=== PATIENT | female | born 1950 | race Caucasian/White ===

== ENCOUNTER → 2017-02-08 | Outpatient (CLI) | payer MEDICARE, BC ==
[2017-02-08 12:01] LABS: ALT 40 U/L (9-52); AST 31 U/L (14-36); Anion Gap 12 mmol/L; Blood Urea Nitrogen 16 mg/dL (7-17); Carbon Dioxide 23 mmol/L (22-30); Chloride 103 mmol/L (98-107); Cholesterol 117 mg/dL (<200); Glucose 101 mg/dL (74-99); HDL Cholesterol 38 mg/dL (40-60); Non-African American GFR(MDRD) >60 (>60 ml/min/1.73 sqM); Potassium 4.8 mmol/L (3.5-5.1); Sodium 138 mmol/L (137-145); Triglycerides 217 mg/dL (<150)
[2017-02-08 16:00] LABS: Hemoglobin A1C 5.9 % (4.2-6.1)
== END | disposition home or self-care (01) ==
LOC: LABWHC1 10:36
PROVIDERS: ATTEND Family Medicine
DX: E78.2 Mixed hyperlipidemia (principal); E11.65 Type 2 diabetes mellitus with hyperglycemia
CPT/HCPCS: 36415; 80048; 80061; 82043; 83036; 84450; 84460

== ENCOUNTER 2018-02-06 01:06 | Emergency (ER) | payer MEDICARE, BC ==
[2018-02-06 01:15] VITALS: TEMP 97
[2018-02-06] MEDS ORDERED: LORazepam 2 MG/ML INJ IV STA (01:32)
[2018-02-06] MEDS ORDERED: SODIUM CHLORIDE 0.9% 500 ML IV ONE (01:32)
[2018-02-06 01:35] LABS: Glucose,Whole Blood 158 mg/dL (75-99)
--- NOTE | 2018-02-06 01:46 | ED ---
General Adult HPI - General Chief complaint: Altered Mental Status Stated complaint: Poss overdose Time Seen by Provider: 02/06/18 01:15 Source: family, EMS, RN notes reviewed Mode of arrival: EMS Limitations: no limitations - History of Present Illness Initial comments: This is a 67-year-old female who presents emergency Department because of altered mental status. Family states she was playing a game with them and all of a sudden she became confused and altered and she has been altered over since. Prior to that the patient had no complaints she had no fever she had no nausea vomiting or diarrhea. states she wasn't complaining of any chest pain or difficulty breathing she had not been complaining of any abdominal pain she had not recently been ill. states she's had no history of similar. states that he doesn't believe she took anything that she shouldn't of. But she significantly altered and very repetitive. Patient will not answer any questions she just repetitively states she has to go to the bathroom and is rocking back and forth. Patient is very agitated. - Related Data Home Medications Medication Instructions Recorded Confirmed amLODIPine [Norvasc] 10 mg PO DAILY 03/11/14 02/06/18 Diazepam 5 mg PO BID PRN 02/10/15 02/06/18 Famotidine [Pepcid] 20 mg PO BID 02/10/15 02/06/18 HYDROcodone/APAP 10-325MG [[place] 1 tab PO Q6H PRN 02/10/15 02/06/18 10-325] Metaxalone 800 mg PO TID PRN 02/10/15 02/06/18 Methocarbamol [Robaxin] 1,000 mg PO Q12HR PRN 02/10/15 02/06/18 Atorvastatin [Lipitor] 80 mg PO DAILY 02/12/15 02/06/18 Previous Rx's Medication Instructions Recorded Aspirin 325 mg PO DAILY #60 tab 03/13/14 Clopidogrel [Plavix] 75 mg PO DAILY #30 tab 03/13/14 Lisinopril [Zestril] 5 mg PO DAILY #30 tab 03/13/14 Nitroglycerin Sl Tabs [Nitrostat] 0.4 mg SUBLINGUAL Q5M PRN #30 tab 03/13/14 Metoprolol Tartrate [Lopressor] 25 mg PO DAILY #60 tab 02/13/15 metFORMIN HCL [Glucophage] 500 mg PO BID #0 02/13/15 Allergies Allergy/AdvReac Type Severity Reaction Status Date / Time cephalexin [Cephalexin] Allergy Rash/Hives Verified 02/06/18 01:15 cephalexin monohydrate Allergy Rash/Hives Verified 02/06/18 01:15 [From Keflex] peanut Allergy Swelling Verified 02/06/18 01:15 sulfadiazine [Sulfadiazine] Allergy Rash/Hives Verified 02/06/18 01:15 sumatriptan succinate Allergy Rash/Hives Verified 02/06/18 01:15 [From Imitrex] acetaminophen [From Vicodin] AdvReac Itching Verified 02/06/18 01:15 hydrocodone bitartrate AdvReac Itching Verified 02/06/18 01:15 [From Vicodin] BOWEN Allergy Itching Uncoded 02/06/18 01:15 BANDAIDS AdvReac Unknown Uncoded 02/06/18 01:15 Review of Systems ROS Statement: Those systems with pertinent positive or pertinent negative responses have been documented in the HPI. ROS Other: All systems not noted in ROS Statement are negative. Past Medical History Past Medical History: Asthma, Coronary Artery Disease (CAD), Cancer, Chest Pain / Angina, COPD, Diabetes Mellitus, Hyperlipidemia, Hypertension, Myocardial Infarction ([place]), Pneumonia Additional Past Medical History / Comment(s): 02/12/15 Pt admitted to floor s/p stenting of RCA. 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 Date of Last Stent Placement:: 02/12/15 Past Psychological History: Anxiety Smoking Status: Never smoker Past Alcohol Use History: None Reported Past Drug Use History: None Reported - Past Family History Brother(s) Family Medical History: Cancer Additional Family Medical History / Comment(s): LUNG Father Additional Family Medical History / Comment(s): Father was wounded in WWII which pt states caused 5 brain tumors later in life. Mother Family Medical History: Diabetes Mellitus General Exam - General Exam Comments Initial Comments: GENERAL: Patient is well-developed and well-nourished. Patient is nontoxic and well- hydrated and is in mild distress. ENT: Neck is soft and supple. No significant lymphadenopathy is noted. Oropharynx is clear. Moist mucous membranes. Neck has full range of motion without eliciting any pain. EYES: The sclera were anicteric and conjunctiva were pink and moist. Extraocular movements were intact and pupils were equal round and reactive to light. Eyelids were unremarkable. PULMONARY: Unlabored respirations. Good breath sounds bilaterally. No audible rales rhonchi or wheezing was noted. CARDIOVASCULAR: There is a regular rate and rhythm without any murmurs gallops or rubs. ABDOMEN: Soft and nontender with normal bowel sounds. SKIN: Skin is clear with no lesions or rashes and otherwise unremarkable. NEUROLOGIC: Patient is alert however I'm unable to assess orientation since she will not answer any questions and she is just yelling the same thing over and over again. Patient will follow some basic commands and does appear to recognize her . Cranial nerves II through XII are grossly intact. Motor and sensory are also intact. Normal speech, volume and content. Symmetrical smile. MUSCULOSKELETAL: Normal extremities with adequate strength and full range of motion. LYMPHATICS: No significant lymphadenopathy is noted PSYCHIATRIC: Unable to assess Limitations: no limitations Course Vital Signs 02/06/18 02/06/18 01:11 04:01 Temperature 97 F L Pulse Rate 66 85 Respiratory 18 20 Rate Blood Pressure 163/63 154/88 O2 Sat by Pulse 99 98 Oximetry Medical Decision Making - Medical Decision Making Computed tomography scan shows diffuse cerebral edema according to the radiologist. I spoke with Dr. Gracie Bowman wanted the patient transferred to another facility. Dr. Bowman thought the CAT scan might be her baseline CAT scan it since it was read as acute cerebral edema he was requesting the patient to be transferred. Family requested [facility]. Spoke with Dr. Delacruz at [facility] he recommended that we send the patient to [facility]. I spoke with the family they were in agreement with this. I spoke with [facility]'s ER physician and they accepted the transfer. - Lab Data Result diagrams: 02/06/18 01:50 02/06/18 01:50 Lab Results 02/06/18 02/06/18 02/06/18 Range/Units 01:34 01:50 01:50 WBC 13.2 H (3.8-10.6) k/uL RBC 4.63 (3.80-5.40) m/uL Hgb 14.3 (11.4-16.0) gm/dL Hct 41.0 (34.0-46.0) % MCV 88.4 (80.0-100.0) fL MCH 30.8 (25.0-35.0) pg MCHC 34.8 (31.0-37.0) g/dL RDW 13.7 (11.5-15.5) % Plt Count 300 (150-450) k/uL Neutrophils % 81 % Lymphocytes % 14 % Monocytes % 3 % Eosinophils % 1 % Basophils % 0 % Neutrophils # 10.7 H (1.3-7.7) k/uL Lymphocytes # 1.8 (1.0-4.8) k/uL Monocytes # 0.5 (0-1.0) k/uL Eosinophils # 0.1 (0-0.7) k/uL Basophils # 0.0 (0-0.2) k/uL PT (9.0-12.0) sec INR (<1.2) APTT (22.0-30.0) sec Sodium (137-145) mmol/L Potassium (3.5-5.1) mmol/L Chloride (98-107) mmol/L Carbon Dioxide (22-30) mmol/L Anion Gap mmol/L BUN (7-17) mg/dL Creatinine (0.52-1.04) mg/dL Est GFR (CKD-EPI)AfAm (>60 ml/min/1.73 sqM) Est GFR (CKD-EPI)NonAf (>60 ml/min/1.73 sqM) Glucose (74-99) mg/dL POC Glucose (mg/dL) 158 H (75-99) mg/dL POC Glu Drop Forger Helper ID Arft, Shaquille Calcium (8.4-10.2) mg/dL Total Bilirubin (0.2-1.3) mg/dL AST (14-36) U/L ALT (9-52) U/L Alkaline Phosphatase (38-126) U/L Total Creatine Kinase 149 H (30-135) U/L CK-MB (CK-2) 1.3 (0.0-2.4) ng/mL CK-MB (CK-2) Rel Index 0.9 Troponin I <0.012 (0.000-0.034) ng/mL Total Protein (6.3-8.2) g/dL Albumin (3.5-5.0) g/dL Urine Color Urine Appearance (Clear) Urine pH (5.0-8.0) Ur Specific [place] (1.001-1.035) Urine Protein (Negative) Urine Glucose (UA) (Negative) Urine Ketones (Negative) Urine Blood (Negative) Urine Nitrite (Negative) Urine Bilirubin (Negative) Urine Urobilinogen (<2.0) mg/dL Ur Leukocyte Esterase (Negative) Urine Opiates Screen (NotDetected) Ur Oxycodone Screen (NotDetected) Urine Methadone Screen (NotDetected) Ur Propoxyphene Screen (NotDetected) Ur Barbiturates Screen (NotDetected) U Tricyclic Antidepress (NotDetected) Ur Phencyclidine Scrn (NotDetected) Ur Amphetamines Screen (NotDetected) U Methamphetamines Scrn (NotDetected) U Benzodiazepines Scrn (NotDetected) Urine Cocaine Screen (NotDetected) U Marijuana (THC) Screen (NotDetected) 02/06/18 02/06/18 02/06/18 Range/Units 01:50 01:50 01:50 WBC (3.8-10.6) k/uL RBC (3.80-5.40) m/uL Hgb (11.4-16.0) gm/dL Hct (34.0-46.0) % MCV (80.0-100.0) fL MCH (25.0-35.0) pg MCHC (31.0-37.0) g/dL RDW (11.5-15.5) % Plt Count (150-450) k/uL Neutrophils % % Lymphocytes % % Monocytes % % Eosinophils % % Basophils % % Neutrophils # (1.3-7.7) k/uL Lymphocytes # (1.0-4.8) k/uL Monocytes # (0-1.0) k/uL Eosinophils # (0-0.7) k/uL Basophils # (0-0.2) k/uL PT 10.9 (9.0-12.0) sec INR 1.1 (<1.2) APTT 25.8 (22.0-30.0) sec Sodium 142 (137-145) mmol/L Potassium 4.0 (3.5-5.1) mmol/L Chloride 105 (98-107) mmol/L Carbon Dioxide 21 L (22-30) mmol/L Anion Gap 16 mmol/L BUN 17 (7-17) mg/dL Creatinine 0.50 L (0.52-1.04) mg/dL Est GFR (CKD-EPI)AfAm >90 (>60 ml/min/1.73 sqM) Est GFR (CKD-EPI)NonAf >90 (>60 ml/min/1.73 sqM) Glucose 180 H (74-99) mg/dL POC Glucose (mg/dL) (75-99) mg/dL POC Glu Drop Forger Helper ID Calcium 9.6 (8.4-10.2) mg/dL Total Bilirubin 0.8 (0.2-1.3) mg/dL AST 36 (14-36) U/L ALT 56 H (9-52) U/L Alkaline Phosphatase 108 (38-126) U/L Total Creatine Kinase (30-135) U/L CK-MB (CK-2) (0.0-2.4) ng/mL CK-MB (CK-2) Rel Index Troponin I (0.000-0.034) ng/mL Total Protein 6.9 (6.3-8.2) g/dL Albumin 4.5 (3.5-5.0) g/dL Urine Color Light Yellow Urine Appearance Clear (Clear) Urine pH 7.0 (5.0-8.0) Ur Specific [place] 1.014 (1.001-1.035) Urine Protein Negative (Negative) Urine Glucose (UA) 2+ H (Negative) Urine Ketones Negative (Negative) Urine Blood Negative (Negative) Urine Nitrite Negative (Negative) Urine Bilirubin Negative (Negative) Urine Urobilinogen <2.0 (<2.0) mg/dL Ur Leukocyte Esterase Negative (Negative) Urine Opiates Screen Not Detected (NotDetected) Ur Oxycodone Screen Not Detected (NotDetected) Urine Methadone Screen Not Detected (NotDetected) Ur Propoxyphene Screen Not Detected (NotDetected) Ur Barbiturates Screen Not Detected (NotDetected) U Tricyclic Antidepress Not Detected (NotDetected) Ur Phencyclidine Scrn Not Detected (NotDetected) Ur Amphetamines Screen Detected H (NotDetected) U Methamphetamines Scrn Not Detected (NotDetected) U Benzodiazepines Scrn Detected H (NotDetected) Urine Cocaine Screen Not Detected (NotDetected) U Marijuana (THC) Screen Not Detected (NotDetected) Disposition Clinical Impression: Cerebral edema, Altered mental status Disposition: OTHER INSTITUTION NOT DEFINED Is patient prescribed a controlled substance at discharge?: No Referrals: Farzad Chowdary MD [Primary Care Provider] - 1-2 days Time of Disposition: 03:44 - Out of Hospital Transfer - Req. Specs Out of Hospital Transfer - Requested Specifics: Other Emergency Center ([facility])
[2018-02-06 01:59] LABS: Basophils % (A) 0 %; Eosinophils # (A) 0.1 k/uL (0-0.7); Eosinophils % (A) 1 %; HGB 14.3 gm/dL (11.4-16.0); Lymphocytes # (A) 1.8 k/uL (1.0-4.8); Lymphocytes % (A) 14 %; MCH 30.8 pg (25.0-35.0); MCHC 34.8 g/dL (31.0-37.0); MCV 88.4 fL (80.0-100.0); Mean Platelet Volume 6.6; Monocytes # (A) 0.5 k/uL (0-1.0); Monocytes % (A) 3 %; Neutrophils # (A) 10.7 k/uL (1.3-7.7); Neutrophils % (A) 81 %; Platelet Count 300 k/uL (150-450); RBC 4.63 m/uL (3.80-5.40); RDW 13.7 % (11.5-15.5); WBC 13.2 k/uL (3.8-10.6)
[2018-02-06 02:00] LABS: Appearance,Urine Clear (Clear); Bilirubin,Urine Negative (Negative); Blood,Urine Negative (Negative); Color,Urine Light Yellow; Glucose,Urine (UA) 2+ (Negative); Ketones,Urine Negative (Negative); Leukocyte Esterase,Urine Negative (Negative); Nitrite,Urine Negative (Negative); Protein,Urine Negative (Negative); Specific Gravity,Urine 1.014 (1.001-1.035); Urobilinogen,Urine <2.0 mg/dL (<2.0)
[2018-02-06 02:07] LABS: INR 1.1 (<1.2); Partial Thromboplastin Time 25.8 sec (22.0-30.0); Prothrombin Time 10.9 sec (9.0-12.0)
[2018-02-06 02:11] LABS: ALT 56 U/L (9-52); AST 36 U/L (14-36); Albumin 4.5 g/dL (3.5-5.0); Alkaline Phosphatase 108 U/L (38-126); Anion Gap 16 mmol/L; Blood Urea Nitrogen 17 mg/dL (7-17); Calcium 9.6 mg/dL (8.4-10.2); Carbon Dioxide 21 mmol/L (22-30); Chloride 105 mmol/L (98-107); Glucose 180 mg/dL (74-99); Sodium 142 mmol/L (137-145); Total Bilirubin 0.8 mg/dL (0.2-1.3); Total Protein 6.9 g/dL (6.3-8.2)
[2018-02-06 02:14] LABS: Amphetamine Screen,Urine Detected (NotDetected); Barbiturate Screen,Urine Not Detected (NotDetected); Benzodiazepines Screen,Urine Detected (NotDetected); Cocaine Screen,Urine Not Detected (NotDetected); Methadone Screen, Urine Not Detected (NotDetected); Opiate Screen,Urine Not Detected (NotDetected); Oxycodone Screen, Urine Not Detected (NotDetected); Phencyclidine Screen,Urine Not Detected (NotDetected); Tricyclic Antidepressant,Urine Not Detected (NotDetected); Urn Cannabinoid Scrn Not Detected (NotDetected)
[2018-02-06 02:32] LABS: Creatine Kinase 149 U/L (30-135)
[2018-02-06 02:45] LABS: Creatine Kinase MB 1.3 ng/mL (0.0-2.4); Troponin I <0.012 ng/mL (0.000-0.034)
--- NOTE | 2018-02-06 03:19 | CT ---
EXAMINATION TYPE: CT brain wo con DATE OF EXAM: 02/06/2018 COMPARISON: NONE HISTORY: AMS CT DLP: 1086.10 mGycm Automated exposure control for dose reduction was used. FINDINGS: Ventricles appear small for age. There is also loss of the sulcal pattern. This could relate to cereb ral edema. Calvarium is intact. There is no midline shift. There is no sign of intracranial hemorrhag e. IMPRESSION: THERE IS LOSS OF THE SULCI PATTERN AND VENTRICLES ARE RELATIVELY SMALL SUGGESTIVE OF ACUTE CEREBRAL E UVALDO. THIS EXAM WAS DISCUSSED WITH ER PHYSICIAN AT 3:15 AM.
--- NOTE | 2018-02-06 03:21 | XR ---
EXAMINATION TYPE: XR chest 1V portable DATE OF EXAM: 02/06/2018 COMPARISON: 02/06/2015 HISTORY: Altered mental status TECHNIQUE: Single frontal view of the chest is obtained. FINDINGS: There is no heart failure nor confluent pneumonic infiltrate. Costophrenic angles are brent r. There are chest leads. Bony thorax is intact. IMPRESSION: No active cardiopulmonary disease. No change.
[2018-02-06 04:02] VITALS: BP 154/88; PULSE 85; RESP 20
== END 2018-02-06 04:52 | disposition short-term general hospital (02) ==
LOC: EC 01:06
DX: G93.6 Cerebral edema (principal); R41.82 Altered mental status, unspecified; R45.1 Restlessness and agitation; E78.5 Hyperlipidemia, unspecified; I10 Essential (primary) hypertension; I25.10 Atherosclerotic heart disease of native coronary artery without angina pectoris; I25.2 Old myocardial infarction; Z79.899 Other long term (current) drug therapy; Z88.1 Allergy status to other antibiotic agents; Z88.5 Allergy status to narcotic agent; Z88.8 Allergy status to other drugs, medicaments and biological substances; Z91.010 Allergy to peanuts; Z91.018 Allergy to other foods; Z91.048 Other nonmedicinal substance allergy status; Z86.79 Personal history of other diseases of the circulatory system; Z85.42 Personal history of malignant neoplasm of other parts of uterus; Z90.710 Acquired absence of both cervix and uterus; Z84.89 Family history of other specified conditions
CPT/HCPCS: 99285; 96374; 96361; 36415; 80053; 82550; 82553; 84484; 85025; 85610; 85730; 81003; 80306; 71045; 70450; J2060

== ENCOUNTER → 2018-02-13 | Outpatient (CLI) | payer MEDICARE, BC ==
[2018-02-13 11:10] LABS: ALT 46 U/L (9-52); AST 26 U/L (14-36); Anion Gap 17 mmol/L; Blood Urea Nitrogen 19 mg/dL (7-17); Calcium 10.4 mg/dL (8.4-10.2); Carbon Dioxide 24 mmol/L (22-30); Chloride 102 mmol/L (98-107); Cholesterol 168 mg/dL (<200); Glucose 107 mg/dL (74-99); HDL Cholesterol 42 mg/dL (40-60); LDL Cholesterol,Calculated 49 mg/dL (0-99); Potassium 4.4 mmol/L (3.5-5.1); Sodium 143 mmol/L (137-145); Triglycerides 384 mg/dL (<150)
[2018-02-13 18:49] LABS: Hemoglobin A1C 6.6 % (4.0-6.0)
== END | disposition home or self-care (01) ==
LOC: LABWHC1 09:28
PROVIDERS: ATTEND Internal Medicine Interventional Cardiology
DX: E78.2 Mixed hyperlipidemia (principal); E11.65 Type 2 diabetes mellitus with hyperglycemia
CPT/HCPCS: 36415; 80048; 80061; 83036; 84450; 84460

== ENCOUNTER 2018-04-20 07:31 | Observation (INO) | payer MEDICARE, BC ==
[2018-04-20] MEDS ORDERED: HYDROmorphone 0.5 MG/0.5 ML SYRINGE IVP STA (08:03)
--- NOTE | 2018-04-20 08:15 | ED ---
General Adult HPI - General Chief complaint: Chest Pain Stated complaint: Chest pain Time Seen by Provider: 04/20/18 07:35 Source: patient, RN notes reviewed Mode of arrival: wheelchair Limitations: no limitations - History of Present Illness Initial comments: This is a 68-year-old female who presents emergency department complaining of chest pain. Patient states she has chronic back pain for which she recently had an epidural on Monday. Patient states after the epidural her pain in her back is gotten worse and this morning she woke up and she was having significant chest pain. Patient states she's had 2 stents placed in the past that she was concerned that she was having a heart attack. Patient denied any shortness of breath. Patient denies any diaphoresis. Patient denies nausea vomiting. Patient states currently she is not having chest pain but the back pain is excruciating. Patient denies any new symptoms with the back pain she denies any numbness or weakness. Patient states she does have some radiation of the left leg. Patient denies any recent fever chills. Patient denies headache patient denies any lightheadedness or dizziness. - Related Data Home Medications Medication Instructions Recorded Confirmed amLODIPine [Norvasc] 10 mg PO DAILY 03/11/14 04/20/18 Diazepam 5 mg PO BID PRN 02/10/15 04/20/18 HYDROcodone/APAP 10-325MG [[place] 1 tab PO Q6H PRN 02/10/15 04/20/18 10-325] Acetaminophen [Tylenol Extra 500 mg PO BID PRN 04/20/18 04/20/18 Strength] Atorvastatin [Lipitor] 40 mg PO DAILY 04/20/18 04/20/18 Baclofen [Lioresal] 20 mg PO DAILY 04/20/18 04/20/18 Butalbital/Acetaminophen 1 tab PO Q8HR PRN 04/20/18 04/20/18 [Butalbital/Acetaminophen 50-300 Tab] Diclofenac Sodium Gel [Voltaren 2 gm TOPICAL DAILY 04/20/18 04/20/18 Gel] Ibuprofen [Motrin] 800 mg PO TID PRN 04/20/18 04/20/18 Irbesartan [Avapro] 150 mg PO DAILY 04/20/18 04/20/18 Metoprolol Tartrate [Lopressor] 25 mg PO BID 04/20/18 04/20/18 Previous Rx's Medication Instructions Recorded Aspirin 325 mg PO DAILY #60 tab 03/13/14 Clopidogrel [Plavix] 75 mg PO DAILY #30 tab 03/13/14 Nitroglycerin Sl Tabs [Nitrostat] 0.4 mg SUBLINGUAL Q5M PRN #30 tab 03/13/14 metFORMIN HCL [Glucophage] 500 mg PO BID #0 02/13/15 Allergies Allergy/AdvReac Type Severity Reaction Status Date / Time cephalexin [Cephalexin] Allergy Rash/Hives Verified 04/20/18 08:35 cephalexin monohydrate Allergy Rash/Hives Verified 04/20/18 08:35 [From Keflex] famotidine [From Pepcid] Allergy Unknown Verified 04/20/18 08:35 peanut Allergy Swelling Verified 04/20/18 08:35 sulfadiazine [Sulfadiazine] Allergy Rash/Hives Verified 04/20/18 08:35 sumatriptan succinate Allergy Rash/Hives Verified 04/20/18 08:35 [From Imitrex] acetaminophen [From Vicodin] AdvReac Itching Verified 04/20/18 08:35 hydrocodone bitartrate AdvReac Itching Verified 04/20/18 08:35 [From Vicodin] BOWEN Allergy Itching Uncoded 04/20/18 07:37 BANDAIDS AdvReac Unknown Uncoded 04/20/18 07:37 Review of Systems ROS Statement: Those systems with pertinent positive or pertinent negative responses have been documented in the HPI. ROS Other: All systems not noted in ROS Statement are negative. Past Medical History Past Medical History: Asthma, Coronary Artery Disease (CAD), Cancer, Chest Pain / Angina, COPD, Diabetes Mellitus, Hyperlipidemia, Hypertension, Myocardial Infarction ([place]), Pneumonia Additional Past Medical History / Comment(s): 02/12/15 Pt admitted to floor s/p stenting of RCA. 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 Date of Last Stent Placement:: 02/12/15 Past Psychological History: Anxiety Smoking Status: Never smoker Past Alcohol Use History: None Reported Past Drug Use History: None Reported - Past Family History Brother(s) Family Medical History: Cancer Additional Family Medical History / Comment(s): LUNG Father Additional Family Medical History / Comment(s): Father was wounded in WWII which pt states caused 5 brain tumors later in life. Mother Family Medical History: Diabetes Mellitus General Exam - General Exam Comments Initial Comments: GENERAL: Patient is well-developed and well-nourished. Patient is nontoxic and well- hydrated and is in mild distress. ENT: Neck is soft and supple. No significant lymphadenopathy is noted. Oropharynx is clear. Moist mucous membranes. Neck has full range of motion without eliciting any pain. EYES: The sclera were anicteric and conjunctiva were pink and moist. Extraocular movements were intact and pupils were equal round and reactive to light. Eyelids were unremarkable. PULMONARY: Unlabored respirations. Good breath sounds bilaterally. No audible rales rhonchi or wheezing was noted. CARDIOVASCULAR: There is a regular rate and rhythm without any murmurs gallops or rubs. ABDOMEN: Soft and nontender with normal bowel sounds. No palpable organomegaly was noted. There is no palpable pulsatile mass. SKIN: Skin is clear with no lesions or rashes and otherwise unremarkable. NEUROLOGIC: Patient is alert and oriented x3. Cranial nerves II through XII are grossly intact. Motor and sensory are also intact. Normal speech, volume and content. Symmetrical smile. MUSCULOSKELETAL: Normal extremities with adequate strength and full range of motion. No lower extremity swelling or edema. No calf tenderness. LYMPHATICS: No significant lymphadenopathy is noted PSYCHIATRIC: Normal psychiatric evaluation. Normal interpersonal interactions appears functionally intact in deals appropriately with others. No signs of depression. No signs of anxiety. Limitations: no limitations Course Vital Signs 04/20/18 07:33 Temperature 98.5 F Pulse Rate 59 L Respiratory 18 Rate Blood Pressure 167/75 O2 Sat by Pulse 95 Oximetry Medical Decision Making - Medical Decision Making EKG shows sinus bradycardia 59 bpm MI interval 146 dresses 92 QT interval is 400 QTC is 396. Patient's EKG shows no ST segment elevation or depression or T wave abnormalities are noted. Chest x-ray shows no acute abnormality. Patient's pain medicine was improved with Dilaudid. I spoke with Dr. South she agreed to admit the patient admitted the patient I wrote admitting orders. I started the patient on heparin for unstable angina I continued pain medicines I consult cardiology and I wrote admitting orders. - Lab Data Result diagrams: 04/20/18 07:58 04/20/18 07:58 Lab Results 04/20/18 04/20/18 04/20/18 Range/Units 07:58 07:58 07:58 WBC 10.5 (3.8-10.6) k/uL RBC 4.74 (3.80-5.40) m/uL Hgb 14.2 (11.4-16.0) gm/dL Hct 42.7 (34.0-46.0) % MCV 90.1 (80.0-100.0) fL MCH 30.0 (25.0-35.0) pg MCHC 33.3 (31.0-37.0) g/dL RDW 13.4 (11.5-15.5) % Plt Count 420 (150-450) k/uL Neutrophils % 60 % Lymphocytes % 30 % Monocytes % 7 % Eosinophils % 2 % Basophils % 1 % Neutrophils # 6.3 (1.3-7.7) k/uL Lymphocytes # 3.1 (1.0-4.8) k/uL Monocytes # 0.8 (0-1.0) k/uL Eosinophils # 0.2 (0-0.7) k/uL Basophils # 0.1 (0-0.2) k/uL PT (9.0-12.0) sec INR (<1.2) APTT (22.0-30.0) sec Sodium 142 (137-145) mmol/L Potassium 4.2 (3.5-5.1) mmol/L Chloride 102 (98-107) mmol/L Carbon Dioxide 26 (22-30) mmol/L Anion Gap 14 mmol/L BUN 12 (7-17) mg/dL Creatinine 0.53 (0.52-1.04) mg/dL Est GFR (CKD-EPI)AfAm >90 (>60 ml/min/1.73 sqM) Est GFR (CKD-EPI)NonAf >90 (>60 ml/min/1.73 sqM) Glucose 163 H (74-99) mg/dL Calcium 10.0 (8.4-10.2) mg/dL Magnesium 1.8 (1.6-2.3) mg/dL Total Bilirubin 0.8 (0.2-1.3) mg/dL AST 30 (14-36) U/L ALT 38 (9-52) U/L Alkaline Phosphatase 70 (38-126) U/L Total Creatine Kinase 86 (30-135) U/L CK-MB (CK-2) 0.8 (0.0-2.4) ng/mL CK-MB (CK-2) Rel Index 0.9 Troponin I <0.012 (0.000-0.034) ng/mL Total Protein 6.9 (6.3-8.2) g/dL Albumin 4.7 (3.5-5.0) g/dL 04/20/18 Range/Units 07:58 WBC (3.8-10.6) k/uL RBC (3.80-5.40) m/uL Hgb (11.4-16.0) gm/dL Hct (34.0-46.0) % MCV (80.0-100.0) fL MCH (25.0-35.0) pg MCHC (31.0-37.0) g/dL RDW (11.5-15.5) % Plt Count (150-450) k/uL Neutrophils % % Lymphocytes % % Monocytes % % Eosinophils % % Basophils % % Neutrophils # (1.3-7.7) k/uL Lymphocytes # (1.0-4.8) k/uL Monocytes # (0-1.0) k/uL Eosinophils # (0-0.7) k/uL Basophils # (0-0.2) k/uL PT 10.5 (9.0-12.0) sec INR 1.1 (<1.2) APTT 24.9 (22.0-30.0) sec Sodium (137-145) mmol/L Potassium (3.5-5.1) mmol/L Chloride (98-107) mmol/L Carbon Dioxide (22-30) mmol/L Anion Gap mmol/L BUN (7-17) mg/dL Creatinine (0.52-1.04) mg/dL Est GFR (CKD-EPI)AfAm (>60 ml/min/1.73 sqM) Est GFR (CKD-EPI)NonAf (>60 ml/min/1.73 sqM) Glucose (74-99) mg/dL Calcium (8.4-10.2) mg/dL Magnesium (1.6-2.3) mg/dL Total Bilirubin (0.2-1.3) mg/dL AST (14-36) U/L ALT (9-52) U/L Alkaline Phosphatase (38-126) U/L Total Creatine Kinase (30-135) U/L CK-MB (CK-2) (0.0-2.4) ng/mL CK-MB (CK-2) Rel Index Troponin I (0.000-0.034) ng/mL Total Protein (6.3-8.2) g/dL Albumin (3.5-5.0) g/dL Critical Care Time Critical Care Time: Yes Total Critical Care Time: 35 Disposition Clinical Impression: Unstable angina pectoris, Sciatica Disposition: ADMITTED IP TO THIS HOSP Referrals: Farzad Chowdary MD [Primary Care Provider] - 1-2 days Time of Disposition: 09:35
[2018-04-20 08:28] LABS: ALT 38 U/L (9-52); AST 30 U/L (14-36); Albumin 4.7 g/dL (3.5-5.0); Alkaline Phosphatase 70 U/L (38-126); Anion Gap 14 mmol/L; Blood Urea Nitrogen 12 mg/dL (7-17); Carbon Dioxide 26 mmol/L (22-30); Chloride 102 mmol/L (98-107); Glucose 163 mg/dL (74-99); Magnesium 1.8 mg/dL (1.6-2.3); Potassium 4.2 mmol/L (3.5-5.1); Sodium 142 mmol/L (137-145); Total Bilirubin 0.8 mg/dL (0.2-1.3); Total Protein 6.9 g/dL (6.3-8.2)
--- NOTE | 2018-04-20 08:31 | XR ---
EXAMINATION TYPE: XR chest 2V DATE OF EXAM: 04/20/2018 COMPARISON: Chest x-ray February 06, 2018. HISTORY: Chest pain TECHNIQUE: Frontal and lateral views of the chest are obtained. FINDINGS: There is no focal air space opacity, pleural effusion, or pneumothorax seen. The cardiac silhouette size is mildly enlarged on current study. The osseous structures are intact. IMPRESSION: Mild cardiomegaly without acute pulmonary process.
[2018-04-20 08:44] LABS: Basophils # (A) 0.1 k/uL (0-0.2); Basophils % (A) 1 %; Eosinophils # (A) 0.2 k/uL (0-0.7); Eosinophils % (A) 2 %; HCT 42.7 % (34.0-46.0); HGB 14.2 gm/dL (11.4-16.0); Lymphocytes # (A) 3.1 k/uL (1.0-4.8); Lymphocytes % (A) 30 %; MCHC 33.3 g/dL (31.0-37.0); MCV 90.1 fL (80.0-100.0); Mean Platelet Volume 6.5; Monocytes # (A) 0.8 k/uL (0-1.0); Monocytes % (A) 7 %; Neutrophils # (A) 6.3 k/uL (1.3-7.7); Neutrophils % (A) 60 %; Platelet Count 420 k/uL (150-450); RBC 4.74 m/uL (3.80-5.40); RDW 13.4 % (11.5-15.5); WBC 10.5 k/uL (3.8-10.6)
[2018-04-20 08:45] LABS: Creatine Kinase 86 U/L (30-135)
[2018-04-20 08:46] LABS: INR 1.1 (<1.2); Partial Thromboplastin Time 24.9 sec (22.0-30.0); Prothrombin Time 10.5 sec (9.0-12.0)
[2018-04-20 08:57] LABS: Creatine Kinase MB 0.8 ng/mL (0.0-2.4); Troponin I <0.012 ng/mL (0.000-0.034)
[2018-04-20] MEDS ORDERED: KETOROLAC 60 MG/2 ML VIAL IVP STA (09:23)
[2018-04-20] MEDS ORDERED: HEPARIN SODIUM,PORCINE 5,000 UNIT/ML 1 ML VIAL IV ONE (09:29)
[2018-04-20] MEDS ORDERED: HEPARIN SOD,PORK IN 0.45% NACL 25,000 UNIT in 0.45% NACL 1 500ML.BAG IV SCH (09:30)
[2018-04-20] MEDS ORDERED: NITROGLYCERIN SL TABS 0.4 MG TAB SUBLINGUAL PRN (09:40)
[2018-04-20 11:37] LABS: Glucose,Whole Blood 94 mg/dL (75-99)
--- NOTE | 2018-04-20 11:43 | CONS ---
CONSULTATION CHIEF COMPLAINT: Chest pain. Terese Zacarias is a 68-year-old lady with history of coronary artery disease, status post angioplasty of right coronary artery, hypertension, dyslipidemia, tom-ysbrrsv-prklqxulr diabetes, who presents to hospital complaining of chest pain. She woke up early this morning with what she describes as a pressure-like sensation in her chest without radiation to neck, arm or back, was given sublingual nitroglycerin, following which she became chest pain free. She is in the ER, currently on IV heparin. EKG does not reveal ischemic changes. The first set of troponin is negative. Patient is being troubled by sciatica with chronic back pain and leg pain for the last several months and that really seems to be her main problem. PAST MEDICAL HISTORY: Significant for coronary artery disease, status post angioplasty, hypertension, diabetes, dyslipidemia. MEDICATIONS: Medications include sublingual nitroglycerin on p.r.n. basis, Tylenol, Glucophage, Lopressor, Avapro, Norvasc, Plavix, Lipitor and aspirin. ALLERGIES: She has multiple drug allergies. They are charted and I reviewed them. FAMILY HISTORY: Family history is negative for premature coronary artery disease. SOCIAL HISTORY: Negative for current smoking, EtOH abuse, or drug abuse. REVIEW OF SYSTEMS: HEENT is unremarkable. CARDIAC: As described above. RESPIRATORY: Negative GI: Negative. GENITOURINARY: Negative. ALLERGY/IMMUNOLOGY: Negative. SKIN: Negative. MUSCULOSKELETAL: Significant for arthritis. PSYCHOSOCIAL: Negative. ENDOCRINE: Negative. HEMATOLOGICAL: Negative. DERM: Negative. CONSTITUTIONAL: Negative. ONCOLOGICAL: Negative. Rest of the system review is not relevant. PHYSICAL EXAMINATION: On exam, comfortable at rest. Vital signs are stable. There is no jugular venous distention. Carotid upstroke is normal. There is no bruit. Chest exam reveals good air entry bilaterally. Heart exam reveals first and second heart sounds. No gallop. No murmur. No rub. Abdomen is soft, nontender. Examination of the extremities did not reveal any edema. Peripheral pulses are felt. NEUROLOGIST exam did not reveal focal neurological deficits. LABS: Labs show a hemoglobin of 14.2, potassium is 4.2, creatinine is 0.5. Troponin is negative. ASSESSMENT: 1. Unstable angina. 2. Back pain. 3. Hypertension. 4. Ixe-pguhbfc-krsyevuru diabetes. PLAN: I will treat the patient with aspirin, heparin, nitrates. Resume the beta blockers that she was on along with Plavix and statins. The patient will need a cardiac catheterization. We will probably do this on Monday. Thank you for allowing us to participate in this pleasant lady. DERICK / MARIE: [phone] /
[2018-04-20] MEDS: NITROGLYCERIN OINT 1 INCH/GM PACKET TOPICAL SCH ×3 (11:54→23:11)
[2018-04-20] MEDS ORDERED: ACETAMINOPHEN PO PRN (13:28)
[2018-04-20] MEDS ORDERED: ACETAMINOPHEN TAB 500 MG TAB PO PRN (13:28)
[2018-04-20] MEDS ORDERED: BUTALBITAL PO PRN (13:28)
[2018-04-20] MEDS ORDERED: [UNRECOGNIZED DRUG - OTHER] PO PRN (13:28)
[2018-04-20] MEDS ORDERED: NALOXONE 0.4 MG/ML 1 ML VIAL IV PRN (13:39)
--- NOTE | 2018-04-20 13:47 | P.HPIM ---
History of Present Illness H&P Date: 04/20/18 Chief Complaint: Chest Pain Patient is a 68-year-old female with a past medical history of diabetes mellitus type 2 gde-mlaykdh-rfdylnuum currently well-controlled, hypertension, dyslipidemia, and prior myocardial infarction who presented to the emergency department complaints of chest pain. In the ER she underwent an extensive evaluation. Her initial vital signs showed slightly elevated blood pressure at 167/75. Initial laboratory analysis was unremarkable and first troponin was negative. There is concern for unstable angina. Her EKG showed normal sinus rhythm at a rate of [address]-T wave changes. She was started on a heparin drip, nitro patch, and was placed in observation. Patient seen and examined at bedside. She is currently chest pain-free. She states that she was up and walking early this morning and developed acute feeling of a gas bubble in her stomach that sunshine up became overt retrosternal chest pain. It lasted approximately 1-2 minutes until she took a nitro tablet. She denies any nausea, vomiting, diaphoresis, shortness of breath, or numbness and tingling associated with this. It is similar to when she had a heart attack in the past. The only difference is that she has been suffering with chronic back pain and sciatica since October. She was having severe back and leg pain all evening. She felt as though the pain got so severe it stressed her body and she developed the chest pain. She denies any recent illnesses such as cough, cold, fever, flu, dysuria, or diarrhea. She sees Dr. Robertson of cardiology. She saw him last in January and underwent a stress test and laboratory analysis. She states that both of these were normal and no medication adjustments were made. Review of Systems Pertinent positives and negatives as discussed in HPI, a complete review of systems was performed and all other systems are negative. 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 Date of Last Stent Placement:: 02/12/15 Smoking Status: Never smoker Past Alcohol Use History: Rare Past Drug Use History: None Reported Additional History: Lives with her , no assistive devices - Past Family History Brother(s) Family Medical History: Cancer Additional Family Medical History / Comment(s): LUNG Father Family Medical History: Diabetes Mellitus Additional Family Medical History / Comment(s): Father was wounded in WWII which pt states caused 5 brain tumors later in life. Mother Family Medical History: Diabetes Mellitus Medications and Allergies Home Medications Medication Instructions Recorded Confirmed Type amLODIPine [Norvasc] 10 mg PO DAILY 03/11/14 04/20/18 History Aspirin 325 mg PO DAILY #60 tab 03/13/14 04/20/18 Rx Clopidogrel [Plavix] 75 mg PO DAILY #30 tab 03/13/14 04/20/18 Rx Nitroglycerin Sl Tabs [Nitrostat] 0.4 mg SUBLINGUAL Q5M PRN #30 tab 03/13/14 Rx Diazepam 5 mg PO BID PRN 02/10/15 04/20/18 History HYDROcodone/APAP 10-325MG [Logan 1 tab PO Q6H PRN 02/10/15 04/20/18 History 10-325] metFORMIN HCL [Glucophage] 500 mg PO BID #0 02/13/15 04/20/18 Rx Acetaminophen [Tylenol Extra 500 mg PO BID PRN 04/20/18 04/20/18 History Strength] Atorvastatin [Lipitor] 40 mg PO DAILY 04/20/18 04/20/18 History Baclofen [Lioresal] 20 mg PO DAILY 04/20/18 04/20/18 History Butalbital/Acetaminophen 1 tab PO Q8HR PRN 04/20/18 04/20/18 History [Butalbital/Acetaminophen 50-300 Tab] Diclofenac Sodium Gel [Voltaren 2 gm TOPICAL DAILY 04/20/18 04/20/18 History Gel] Ibuprofen [Motrin] 800 mg PO TID PRN 04/20/18 04/20/18 History Irbesartan [Avapro] 150 mg PO DAILY 04/20/18 04/20/18 History Metoprolol Tartrate [Lopressor] 25 mg PO BID 04/20/18 04/20/18 History Allergies Allergy/AdvReac Type Severity Reaction Status Date / Time cephalexin [Cephalexin] Allergy Rash/Hives Verified 04/20/18 08:35 cephalexin monohydrate Allergy Rash/Hives Verified 04/20/18 08:35 [From Keflex] famotidine [From Pepcid] Allergy Unknown Verified 04/20/18 08:35 peanut Allergy Swelling Verified 04/20/18 08:35 sulfadiazine [Sulfadiazine] Allergy Rash/Hives Verified 04/20/18 08:35 sumatriptan succinate Allergy Rash/Hives Verified 04/20/18 08:35 [From Imitrex] acetaminophen [From Vicodin] AdvReac Itching Verified 04/20/18 08:35 hydrocodone bitartrate AdvReac Itching Verified 04/20/18 08:35 [From Vicodin] BOWEN Allergy Itching Uncoded 04/20/18 07:37 BANDAIDS AdvReac Unknown Uncoded 04/20/18 07:37 Physical Exam Osteopathic Statement: *. No significant issues noted on an osteopathic structural exam other than those noted in the History and Physical/Consult. Vitals: Vital Signs Temp Pulse Pulse Resp BP BP Pulse Ox 04/20/18 12:00 98.2 F 57 L 18 139/83 97 04/20/18 11:09 98.2 F 56 L 18 121/58 98 04/20/18 09:47 54 L 18 126/77 98 04/20/18 07:33 98.5 F 59 L 18 167/75 95 Intake and Output 04/19/18 04/20/18 04/20/18 22:59 06:59 14:59 Other: Weight 91.172 kg General: non toxic, no distress, appears at stated age, normal weight, obese Derm: no unusual rashes/lesions no unusual ecchymoses, warm, dry Head: atraumatic, normocephalic, symmetric Eyes: EOMI, no lid lag, anicteric sclera, pupils equal round reactive to light ENT: Nose and ears atraumatic, no thrush, no pharyngeal erythema Neck: No thyromegaly, no cervical lymphadenopathy, trachea midline, supple Mouth: no lip lesion, mucus membranes moist Cardiovascular: S1S2 reg, no murmur, positive posterior tibial pulse bilateral, no edema, capillary refill less than 2 seconds Lungs: CTA bilateral, no rhonchi, no rales , no accessory muscle use Abdominal: soft, nontender to palpation, no guarding, no appreciable organomegaly, normal bowel sounds Ext: no gross muscle atrophy, muscle strength 5 out of 5 in all 4 extremities grossly, no contractures, Neuro: CN II-XI grossly intact, light touch intact all 4 extremities, finger to nose within normal limits, Psych: Alert, oriented, appropriate affect Results CBC & Chem 7: 04/20/18 07:58 04/20/18 07:58 Labs: Abnormal Lab Results - Last 24 Hours (Table) 04/20/18 Range/Units 07:58 Glucose 163 H (74-99) mg/dL Comments: EKG with first-degree AV block at a rate of 59, no significant ST-T wave changes as reviewed by myself Thrombosis Risk Factor Assmnt - DVT/VTE Prophylaxis DVT/VTE Prophylaxis: Pharmacologic Prophylaxis ordered - Choose All That Apply Any of the Below Risk Factors Present?: Yes Each Factor Represents 1 point: Obesity (BMI >25) Other Risk Factors: Yes Each Risk Factor Represents 2 Points: Age 61-74 years, Malignancy Other congenital or acquired thrombophilia - If yes, enter type in comment: No Thrombosis Risk Factor Assessment Total Risk Factor Score: 5 Thrombosis Risk Factor Assessment Level: High Risk Assessment and Plan Assessment: Unstable angina -Cardiology recommendations appreciated -Maintain Nitropaste, heparin drip, and aspirin -Likely will have cardiac catheterization on Monday -Serial troponins HTN, elevated on arrival - resume betablocker, ARB, norvasc - follow BP DM 2 - Novolof SSI - hold metformin in case of cath - check A1C HLD -statin - check lipid profile Morbid obesity -Outpatient structured weight loss Chronic back pain with sciatica -Resume home medications with Logan 10, baclofen, and diclofenac gel The patient is placed in observation with an anticipated less than 2 per night stay for evaluation of unstable angina. Plan is for possible cardiac catheterization.. Surrogate decision-maker: CODE STATUS: Would not like CPR or intubation if pulseless. Would be okay with cardioversion, vasopressors, antiarrhythmics if pulse. Would be okay with intubation if patient would recover. DVT prophylaxis: Heparin gtt Discussed with: Patient, nursing, Anticipated discharge date: 04/[address]: Home A total of he 5 minutes was spent on the care of this complex patient more than 50% of the time was spent in counseling and care coordination.
[2018-04-20 13:53] VITALS: BMI 34.4
[2018-04-20 14:58] LABS: Creatine Kinase 79 U/L (30-135)
[2018-04-20] MEDS: HYDROcodone/APAP 10-325MG 1 EACH TAB PO PRN ×2 (15:02→20:03)
[2018-04-20 15:11] LABS: Creatine Kinase MB 0.6 ng/mL (0.0-2.4); Troponin I <0.012 ng/mL (0.000-0.034)
[2018-04-20 17:19] LABS: Glucose,Whole Blood 112 mg/dL (75-99)
[2018-04-20] MEDS: INSULIN ASPART 100 UNIT/ML 1 ML 10 ML VIAL SQ SCH ×2 (17:25→20:30)
[2018-04-20] MEDS ORDERED: HEPARIN SODIUM,PORCINE 5,000 UNIT/ML 1 ML VIAL IV PRN (19:42)
[2018-04-20 19:49] LABS: Creatine Kinase 74 U/L (30-135)
[2018-04-20 20:03] LABS: Creatine Kinase MB 0.5 ng/mL (0.0-2.4); Troponin I <0.012 ng/mL (0.000-0.034)
[2018-04-20 20:06] VITALS: RESP 18
[2018-04-20 20:15] LABS: Glucose,Whole Blood 112 mg/dL (75-99)
[2018-04-20] MEDS ORDERED: METOPROLOL TARTRATE 25 MG TAB PO SCH (21:00)
[2018-04-20] MEDS ORDERED: MORPHINE SULFATE 2 MG/ML SYRINGE IVP STA (23:17)
[2018-04-21 03:22] LABS: Cholesterol 134 mg/dL (<200); HDL Cholesterol 36 mg/dL (40-60)
[2018-04-21] MEDS: HYDROcodone/APAP 10-325MG 1 EACH TAB PO PRN (03:26)
[2018-04-21 03:31] LABS: Triglycerides 540 mg/dL (<150)
[2018-04-21 04:13] VITALS: BP 166/82; PULSE 63; TEMP 97.6
[2018-04-21] MEDS: NITROGLYCERIN OINT 1 INCH/GM PACKET TOPICAL SCH (04:15)
--- NOTE | 2018-04-21 05:28 | P.PN ---
Progress Note - Text Progress Note Date: 04/21/18 patient wants to leave AMA, refusing to talk to anyone, claiming that no one is addressing her hip pain while everyone is focused on her chest pain. patient received morphine earlier for her hip pain, and was offered pain med again. patient does not want to discuss anything and decided to leave AMA>
[2018-04-21 07:13] LABS: Glucose,Whole Blood 124 mg/dL (75-99)
--- NOTE | 2018-04-21 07:57 | P.PN ---
Subjective Progress Note Date: 04/21/18 Principal diagnosis: Chest discomfort This is a pleasant 68-year-old female patient who sees Dr. Robertson in the office as an outpatient with a past medical history significant for coronary artery disease with a last coronary intervention was in January 2015 where she underwent stenting of the RCA for in-stent restenosis presented to the hospital complaining of chest discomfort. The patient was seen and evaluated yesterday by Dr. Villalpando was diagnosed the patient with unstable angina and scheduled the patient to undergo a heart catheterization this coming Monday. On follow-up with the patient today, she denies having any chest pain or chest discomfort and she is interested in going home. She expressed the feeling that if she is not going to be discharged she is going to be going home by AMA. Objective - Vital Signs Vital signs: Vital Signs Temp 97.6 F 04/21/18 04:00 Pulse 63 04/21/18 04:00 Resp 18 04/21/18 04:00 BP 166/82 04/21/18 04:00 Pulse Ox 96 04/21/18 04:00 Intake & Output 04/20/18 04/21/18 04/21/18 18:59 06:59 18:59 Intake Total 680 301.667 Balance 680 301.667 Weight 91.172 kg Intake: IV 100 Heparin Sod,Pork in 0.45% 100 NaCl 25,000 unit In 0.45 % NaCl 1 500ml.bag @ 10. 969 UNITS/KG/HR 20 mls/hr IV .Q24H [facility]IP Rx#: [id number] Intake, IV Titration 201.667 Amount Heparin Sod,Pork in 0.45% 201.667 NaCl 25,000 unit In 0.45 % NaCl 1 500ml.bag @ 10. 969 UNITS/KG/HR 20 mls/hr IV .Q24H [facility]ILLIP Rx#: [id number] Oral 680 Other: Voiding Method Toilet Toilet # Voids 1 3 - Constitutional General appearance: Present: no acute distress - Respiratory Respiratory: bilateral: CTA - Cardiovascular Rhythm: regular Heart sounds: normal: S1, S2 - Labs CBC & Chem 7: 04/20/18 07:58 04/20/18 07:58 Labs: Abnormal Lab Results - Last 24 Hours (Table) 04/20/18 04/20/18 04/20/18 Range/Units 07:58 17:16 18:57 APTT 43.4 H (22.0-30.0) sec Glucose 163 H (74-99) mg/dL POC Glucose (mg/dL) 112 H (75-99) mg/dL Triglycerides (<150) mg/dL HDL Cholesterol (40-60) mg/dL 04/20/18 04/21/18 04/21/18 Range/Units 20:14 02:00 02:00 APTT 70.8 H (22.0-30.0) sec Glucose (74-99) mg/dL POC Glucose (mg/dL) 112 H (75-99) mg/dL Triglycerides 540 H (<150) mg/dL HDL Cholesterol 36 L (40-60) mg/dL 04/21/18 Range/Units 07:11 APTT (22.0-30.0) sec Glucose (74-99) mg/dL POC Glucose (mg/dL) 124 H (75-99) mg/dL Triglycerides (<150) mg/dL HDL Cholesterol (40-60) mg/dL Assessment and Plan Assessment: assessment #1 chest discomfort. The patient was ruled out for acute coronary event. She seems to be pain-free at this point #2 coronary artery disease and prior stenting of the RCA in 2014 #3 multiple risk factors for CAD Plan #1 the patient was ruled out for acute coronary event #2 the patient would like to be discharged home.
[2018-04-21] MEDS ORDERED: CLOPIDOGREL 75 MG TAB PO SCH (09:00)
[2018-04-21] MEDS ORDERED: ASPIRIN 325 MG TAB PO SCH (09:00)
[2018-04-21] MEDS ORDERED: amLODIPine 10 MG TAB PO SCH (09:00)
[2018-04-21] MEDS ORDERED: ATORVASTATIN 40 MG TAB PO SCH (09:00)
[2018-04-21] MEDS ORDERED: DICLOFENAC SODIUM GEL 100 GM TUBE TOPICAL SCH (09:00)
[2018-04-21] MEDS ORDERED: LOSARTAN 50 MG TAB PO SCH (09:00)
[2018-04-21] MEDS ORDERED: BACLOFEN 10 MG TAB PO SCH (09:00)
[2018-04-21 12:31] LABS: Hemoglobin A1C 6.4 % (4.0-6.0)
--- NOTE | 2018-04-21 13:58 | P.DS ---
Providers Date of admission: 04/20/18 09:40 Expected date of discharge: 04/21/18 Attending physician: Ghazala South DO Consults: 04/20/18 09:40 Consult Physician Urgent Consulting Provider: [facility] Consult Reason/Comments: Unstable angina Do you want consulting provider notified?: Yes Primary care physician: Farzad Chowdary Hospital Course: Discharge diagnosis: Left against medical advice Chest pain Significant hypertriglyceridemia Dsylipidemia Hip pain Sciatica diabetes mellitus type II Morbid obesity with BMI 34.5 Hospital Course: Patient is a 68-year-old female with a past medical history of diabetes mellitus type 2 gai-umfijvy-qgfxebrwc currently well-controlled, hypertension, dyslipidemia, and prior myocardial infarction who presented to the emergency department complaints of chest pain. In the ER she underwent an extensive evaluation. Her initial vital signs showed slightly elevated blood pressure at 167/75. Initial laboratory analysis was unremarkable and first troponin was negative. There is concern for unstable angina. Her EKG showed normal sinus rhythm at a rate of [address]-T wave changes. She was started on a heparin drip, nitro patch, and was placed in observation. She was seen by cardiology and they had planned for heat cath. She was maintained on her outpatient medications for her sciatica. She had 3 negative troponins. Patient became upset with heparin gtt, telemetry, and lab draws. She wanted to leave Against medical advice. She was talked to by both Dr. Kim my partner and Dr. Go of cardiology. Patient elected to leave AMA stating that it was not her heart and no one is doing anything for her hip. Pertinent Studies: CXR- NAP Patient Condition at Discharge: Undetermined Plan - Discharge Summary Discharge Rx Participant: No New Discharge Prescriptions: No Action amLODIPine [Norvasc] 10 mg PO DAILY Aspirin 325 mg PO DAILY #60 tab Clopidogrel [Plavix] 75 mg PO DAILY #30 tab Nitroglycerin Sl Tabs [Nitrostat] 0.4 mg SUBLINGUAL Q5M PRN #30 tab PRN Reason: Chest Pain HYDROcodone/APAP 10-325MG [Hollister 10-325] 1 tab PO Q6H PRN PRN Reason: Pain Diazepam 5 mg PO BID PRN PRN Reason: STRESS metFORMIN HCL [Glucophage] 500 mg PO BID #0 Ibuprofen [Motrin] 800 mg PO TID PRN PRN Reason: Pain Diclofenac Sodium Gel [Voltaren Gel] 2 gm TOPICAL DAILY Baclofen [Lioresal] 20 mg PO DAILY Butalbital/Acetaminophen [Butalbital/Acetaminophen 50-300 Tab] 1 tab PO Q8HR PRN PRN Reason: Migraine Headache Metoprolol Tartrate [Lopressor] 25 mg PO BID Irbesartan [Avapro] 150 mg PO DAILY Atorvastatin [Lipitor] 40 mg PO DAILY Acetaminophen [Tylenol Extra Strength] 500 mg PO BID PRN PRN Reason: Pain Discharge Medication List amLODIPine [Norvasc] 10 mg PO DAILY 03/11/14 [History] Aspirin 325 mg PO DAILY #60 tab 03/13/14 [Rx] Clopidogrel [Plavix] 75 mg PO DAILY #30 tab 03/13/14 [Rx] Nitroglycerin Sl Tabs [Nitrostat] 0.4 mg SUBLINGUAL Q5M PRN #30 tab 03/13/14 [Rx ] Diazepam 5 mg PO BID PRN 02/10/15 [History] HYDROcodone/APAP 10-325MG [Hollister 10-325] 1 tab PO Q6H PRN 02/10/15 [History] metFORMIN HCL [Glucophage] 500 mg PO BID #0 02/13/15 [Rx] Acetaminophen [Tylenol Extra Strength] 500 mg PO BID PRN 04/20/18 [History] Atorvastatin [Lipitor] 40 mg PO DAILY 04/20/18 [History] Baclofen [Lioresal] 20 mg PO DAILY 04/20/18 [History] Butalbital/Acetaminophen [Butalbital/Acetaminophen 50-300 Tab] 1 tab PO Q8HR PRN 04/20/18 [History] Diclofenac Sodium Gel [Voltaren Gel] 2 gm TOPICAL DAILY 04/20/18 [History] Ibuprofen [Motrin] 800 mg PO TID PRN 04/20/18 [History] Irbesartan [Avapro] 150 mg PO DAILY 04/20/18 [History] Metoprolol Tartrate [Lopressor] 25 mg PO BID 04/20/18 [History] Follow up Appointment(s)/Referral(s): Farzad Chowdary MD [Primary Care Provider] - 1-2 days Discharge Disposition: Left Against Medical Advice
== END 2018-04-21 08:02 | disposition left against medical advice (07) ==
LOC: EC 07:31 → 6SEL 09:40 → 3OBS 17:40
PROVIDERS: ADMIT Internal Medicine; ATTEND Internal Medicine
DX: R07.89 Other chest pain (principal); E78.1 Pure hyperglyceridemia; I25.10 Atherosclerotic heart disease of native coronary artery without angina pectoris; M54.40 Lumbago with sciatica, unspecified side; G89.29 Other chronic pain; I10 Essential (primary) hypertension; E78.5 Hyperlipidemia, unspecified; J44.9 Chronic obstructive pulmonary disease, unspecified; E11.42 Type 2 diabetes mellitus with diabetic polyneuropathy; Z68.34 Body mass index [BMI] 34.0-34.9, adult; F41.9 Anxiety disorder, unspecified; E66.01 Morbid (severe) obesity due to excess calories; Z95.5 Presence of coronary angioplasty implant and graft; I25.2 Old myocardial infarction; M25.559 Pain in unspecified hip; Z79.02 Long term (current) use of antithrombotics/antiplatelets; Z79.82 Long term (current) use of aspirin; Z79.84 Long term (current) use of oral hypoglycemic drugs; Z79.899 Other long term (current) drug therapy; Z88.6 Allergy status to analgesic agent; Z88.1 Allergy status to other antibiotic agents; Z88.5 Allergy status to narcotic agent; Z91.010 Allergy to peanuts; Z88.2 Allergy status to sulfonamides; Z88.8 Allergy status to other drugs, medicaments and biological substances; Z91.018 Allergy to other foods; Z91.048 Other nonmedicinal substance allergy status; Z90.710 Acquired absence of both cervix and uterus; Z85.42 Personal history of malignant neoplasm of other parts of uterus; Z87.01 Personal history of pneumonia (recurrent); Z83.3 Family history of diabetes mellitus; Z80.1 Family history of malignant neoplasm of trachea, bronchus and lung; Z80.8 Family history of malignant neoplasm of other organs or systems
CPT/HCPCS: 96375 ×4; 96376 ×3; 96365 ×2; 96366 ×4; 99291 ×2; 36415; 94760; 93005; 80061; 80053; 82550; 82553; 83735; 84484; 85025; 85610; 85730 ×2; 83036; 71046; G0378 ×3; J1644 ×2; J1885; J2270; J1170

== ENCOUNTER → 2018-11-05 | Outpatient (CLI) | payer MEDICARE, BC ==
[2018-11-05 17:48] LABS: Anion Gap 11.9 mmol/L (4.00-12.00); Calcium 9.7 mg/dL (8.7-10.3); Carbon Dioxide 25.1 mmol/L (21.6-31.8); Potassium 4.9 mmol/L (3.5-5.5)
[2018-11-05 19:08] LABS: Hemoglobin A1C 6.5 % (4.0-6.0)
== END | disposition home or self-care (01) ==
LOC: LABWHC1 09:15
PROVIDERS: ATTEND Internal Medicine Interventional Cardiology
DX: I10 Essential (primary) hypertension (principal); E78.2 Mixed hyperlipidemia; E11.9 Type 2 diabetes mellitus without complications
CPT/HCPCS: 36415; 80048; 80061; 82043; 82570; 83036; 84450; 84460

== ENCOUNTER → 2019-04-03 | Outpatient (CLI) | payer MEDICARE, BC ==
[2019-04-03 12:20] LABS: Basophils # (A) 0.1 k/uL (0-0.2); Basophils % (A) 1 %; Eosinophils # (A) 0.3 k/uL (0-0.7); Eosinophils % (A) 2 %; HCT 45.4 % (34.0-46.0); HGB 14.7 gm/dL (11.4-16.0); Lymphocytes # (A) 3.2 k/uL (1.0-4.8); Lymphocytes % (A) 29 %; MCH 29.3 pg (25.0-35.0); MCHC 32.5 g/dL (31.0-37.0); MCV 90.3 fL (80.0-100.0); Mean Platelet Volume 6.6; Monocytes # (A) 0.7 k/uL (0-1.0); Monocytes % (A) 6 %; Neutrophils # (A) 6.7 k/uL (1.3-7.7); Neutrophils % (A) 61 %; Platelet Count 351 k/uL (150-450); RBC 5.03 m/uL (3.80-5.40); RDW 13.8 % (11.5-15.5); WBC 11.2 k/uL (3.8-10.6)
[2019-04-03 16:09] LABS: ALT 31 U/L (8-44); AST 29 U/L (13-35)
[2019-04-03 19:46] LABS: Hemoglobin A1C 6.9 % (4.0-6.0)
== END | disposition home or self-care (01) ==
LOC: LABWHC1 10:51
PROVIDERS: ATTEND Family Medicine
DX: E11.9 Type 2 diabetes mellitus without complications (principal); I10 Essential (primary) hypertension
CPT/HCPCS: 36415; 82043; 82570; 83036; 84450; 84460; 85025

== ENCOUNTER → 2019-07-17 | Outpatient (CLI) | payer MEDICARE, BC ==
[2019-07-17 22:20] LABS: ALT 30 U/L (8-44); AST 25 U/L (13-35); African American GFR (CKD) 109.3 (60.0-200.0); Albumin/Globulin Ratio 2.53 (1.60-3.17); Alkaline Phosphatase 145 U/L (41-126); BUN/Creat Ratio 28.33 Ratio (12.00-20.00); Calcium 9.6 mg/dL (8.7-10.3); Carbon Dioxide 18.5 mmol/L (21.6-31.8); Chloride 102 mmol/L (96-109); Cholesterol 200 mg/dL (0-200); Globulin 1.9 g/dL (1.6-3.3); Glucose 128 mg/dL (70-110); Potassium 4.7 mmol/L (3.5-5.5); Sodium 139 mmol/L (135-145); Total Bilirubin 0.9 mg/dL (0.3-1.2); Total Protein 6.7 g/dL (6.2-8.2)
== END | disposition home or self-care (01) ==
LOC: LABWHC1 10:33
PROVIDERS: ATTEND Internal Medicine Interventional Cardiology
DX: E78.2 Mixed hyperlipidemia (principal)
CPT/HCPCS: 36415; 80053; 80061; 83721

== ENCOUNTER → 2020-04-23 | Outpatient (CLI) | payer MEDICARE, BC ==
[2020-04-23 17:12] LABS: African American GFR (CKD) 108.5 (60.0-200.0); Albumin 4.7 g/dL (3.80-4.90); Albumin/Globulin Ratio 2.14 (1.60-3.17); Anion Gap 13.8 mmol/L (4.00-12.00); Calcium 9.8 mg/dL (8.7-10.3); Carbon Dioxide 24.2 mmol/L (21.6-31.8); Chol/HDL Ratio 4.41; Globulin 2.2 g/dL (1.6-3.3); LDL Cholesterol,Calculated 21.2 mg/dL (0.0-131.0); Non-African American GFR(CKD) 93.7 (60.0-200.0); Potassium 4.5 mmol/L (3.5-5.5); Total Bilirubin 1.3 mg/dL (0.2-1.2); Total Protein 6.9 g/dL (6.2-8.2); VLDL Calculation 77.8 mg/dL (5.00-40.00)
== END | disposition home or self-care (01) ==
LOC: LABWHC1 08:27
PROVIDERS: ATTEND Internal Medicine Interventional Cardiology
DX: E78.2 Mixed hyperlipidemia (principal); R53.83 Other fatigue; R63.5 Abnormal weight gain
CPT/HCPCS: 36415; 80053; 80061; 84443

== ENCOUNTER → 2020-08-26 | Outpatient (CLI) | payer MEDICARE, BC ==
[2020-08-26 09:57] LABS: Basophils # (A) 0.1 k/uL (0-0.2); Basophils % (A) 1 %; Eosinophils # (A) 0.3 k/uL (0-0.7); Eosinophils % (A) 3 %; HCT 47.4 % (34.0-46.0); HGB 14.9 gm/dL (11.4-16.0); Lymphocytes # (A) 3.1 k/uL (1.0-4.8); Lymphocytes % (A) 31 %; MCH 29.7 pg (25.0-35.0); MCHC 31.4 g/dL (31.0-37.0); MCV 94.6 fL (80.0-100.0); Mean Platelet Volume 7.2; Monocytes # (A) 0.6 k/uL (0-1.0); Monocytes % (A) 6 %; Neutrophils # (A) 5.6 k/uL (1.3-7.7); Neutrophils % (A) 57 %; Platelet Count 284 k/uL (150-450); RBC 5.02 m/uL (3.80-5.40); RDW 13.9 % (11.5-15.5); WBC 9.9 k/uL (3.8-10.6)
[2020-08-26 17:03] LABS: Hemoglobin A1C 8.1 % (4.0-6.0)
[2020-08-26 17:33] LABS: African American GFR (CKD) 103.2 (60.0-200.0); Albumin 4.9 g/dL (3.80-4.90); Albumin/Globulin Ratio 2.33 (1.60-3.17); Anion Gap 15.3 mmol/L (4.00-12.00); BUN/Creat Ratio 21.43 Ratio (12.00-20.00); Calcium 9.7 mg/dL (8.7-10.3); Carbon Dioxide 22.7 mmol/L (21.6-31.8); Chol/HDL Ratio 4.58; Globulin 2.1 g/dL (1.6-3.3); LDL Cholesterol,Calculated 43.4 mg/dL (0.0-131.0); Potassium 4.7 mmol/L (3.5-5.5); VLDL Calculation 74.6 mg/dL (5.00-40.00)
== END | disposition home or self-care (01) ==
LOC: LABWHC1 08:26
PROVIDERS: ATTEND Family Medicine
DX: I10 Essential (primary) hypertension (principal); I25.10 Atherosclerotic heart disease of native coronary artery without angina pectoris
CPT/HCPCS: 36415; 80053; 80061; 83036; 84443; 85025

== ENCOUNTER → 2020-11-19 | Outpatient (CLI) | payer MEDICARE, BC ==
[2020-11-19 17:27] LABS: African American GFR (CKD) 103.2 (60.0-200.0); Albumin/Globulin Ratio 2.63 (1.60-3.17); Anion Gap 15.5 mmol/L (4.00-12.00); Calcium 10.1 mg/dL (8.7-10.3); Carbon Dioxide 21.5 mmol/L (21.6-31.8); Chol/HDL Ratio 6.8; Globulin 1.9 g/dL (1.6-3.3); Potassium 4.1 mmol/L (3.5-5.5); Total Bilirubin 0.9 mg/dL (0.2-1.2); Total Protein 6.9 g/dL (6.2-8.2)
== END | disposition home or self-care (01) ==
LOC: LABWHC1 10:17
PROVIDERS: ATTEND Internal Medicine Interventional Cardiology
DX: E78.2 Mixed hyperlipidemia (principal)
CPT/HCPCS: 36415; 80053; 80061; 83721

== ENCOUNTER → 2021-05-19 | Outpatient (CLI) | payer MEDICARE, BC ==
[2021-05-20 00:23] LABS: African American GFR (CKD) 102.5 (60.0-200.0); Albumin/Globulin Ratio 2.17 (1.60-3.17); Anion Gap 16.3 mmol/L (4.00-12.00); BUN/Creat Ratio 17.14 Ratio (12.00-20.00); Carbon Dioxide 23.7 mmol/L (21.6-31.8); Chol/HDL Ratio 4.25; Globulin 2.3 g/dL (1.6-3.3); LDL Cholesterol,Calculated 34.6 mg/dL (0.0-131.0); Non-African American GFR(CKD) 88.4 (60.0-200.0); Potassium 4.2 mmol/L (3.5-5.5); Total Bilirubin 1.2 mg/dL (0.3-1.2); Total Protein 7.3 g/dL (6.2-8.2); VLDL Calculation 69.4 mg/dL (5.00-40.00)
== END | disposition home or self-care (01) ==
LOC: LABWHC1 09:00
PROVIDERS: ATTEND Internal Medicine Interventional Cardiology
DX: E78.2 Mixed hyperlipidemia (principal)
CPT/HCPCS: 36415; 80053; 80061

== ENCOUNTER → 2021-08-06 | Outpatient (CLI) | payer MEDICARE, BC | END | disposition home or self-care (01) | LOC: LABWHC1 08:53 | PROVIDERS: ATTEND Nurse Practitioner Family | DX: R73.03 Prediabetes (principal) | CPT/HCPCS: 36415; 82947; 83036 ==

== ENCOUNTER → 2021-11-19 | Outpatient (CLI) | payer MEDICARE, BC ==
[2021-11-19 16:03] LABS: ALT 30 U/L (8-44); AST 21 U/L (13-35); Bilirubin, Conjugated <0.20 mg/dL (0.20-0.40); Total Protein 6.9 g/dL (6.2-8.2)
[2021-11-19 16:26] LABS: African American GFR (CKD) 107.8 (60.0-200.0); Albumin 4.5 g/dL (3.8-4.9); Albumin/Globulin Ratio 1.73 (1.60-3.17); Alkaline Phosphatase 146 U/L (41-126); BUN/Creat Ratio 15.17 Ratio (12.00-20.00); Blood Urea Nitrogen 9.1 mg/dL (9.0-27.0); Calcium 9.7 mg/dL (8.7-10.3); Chloride 100 mmol/L (96-109); Chol/HDL Ratio 3.54 Ratio; Globulin 2.6 g/dL (1.6-3.3); Glucose 183 mg/dL (70-110); LDL Cholesterol,Calculated 30.2 mg/dL (0.0-131.0); Phosphorus 3.5 mg/dL (2.4-5.1); Sodium 138 mmol/L (135-145)
== END | disposition home or self-care (01) ==
LOC: LABWHC1 09:16
PROVIDERS: ATTEND Internal Medicine Interventional Cardiology
DX: I10 Essential (primary) hypertension (principal); E11.21 Type 2 diabetes mellitus with diabetic nephropathy; E11.65 Type 2 diabetes mellitus with hyperglycemia; E78.2 Mixed hyperlipidemia; E55.9 Vitamin D deficiency, unspecified; E78.00 Pure hypercholesterolemia, unspecified
CPT/HCPCS: 36415; 80053; 80061; 80069; 82248; 83036

== ENCOUNTER → 2022-10-11 | Outpatient (CLI) | payer MEDICARE, BC ==
[2022-10-11 18:51] LABS: ALT 28 U/L (8-44); AST 20 U/L (13-35); African American GFR (CKD) 101.7 (60.0-200.0); Albumin 4.6 g/dL (3.8-4.9); Albumin/Globulin Ratio 2.09 (1.60-3.17); Alkaline Phosphatase 121 U/L (41-126); BUN/Creat Ratio 19.43 Ratio (12.00-20.00); Blood Urea Nitrogen 13.6 mg/dL (9.0-27.0); Calcium 10.1 mg/dL (8.7-10.3); Chloride 102 mmol/L (96-109); Globulin 2.2 g/dL (1.6-3.3); Glucose 177 mg/dL (70-110); Non-African American GFR(CKD) 87.8 (60.0-200.0); Phosphorus 4.2 mg/dL (2.4-5.1); Potassium 4.9 mmol/L (3.5-5.5); Sodium 139 mmol/L (135-145); Total Protein 6.8 g/dL (6.2-8.2)
[2022-10-11 19:04] LABS: Chol/HDL Ratio 5.32 Ratio
[2022-10-11 19:14] LABS: Bilirubin, Conjugated <0.20 mg/dL (0.20-0.40)
== END | disposition home or self-care (01) ==
LOC: LABWHC1 10:59
PROVIDERS: ATTEND Internal Medicine Interventional Cardiology
DX: I10 Essential (primary) hypertension (principal); E78.2 Mixed hyperlipidemia; E78.00 Pure hypercholesterolemia, unspecified
CPT/HCPCS: 36415; 80053; 80061; 80069; 82248; 83036; 83721

== ENCOUNTER → 2023-05-24 | Outpatient (CLI) | payer MEDICARE, BC ==
[2023-05-24 17:13] LABS: ALT 30 U/L (8-44); AST 24 U/L (13-35); Albumin 4.7 d/dL (3.8-4.9); Albumin/Globulin Ratio 2.24 Ratio (1.60-3.17); Alkaline Phosphatase 116 U/L (41-126); BUN/Creat Ratio 27.33 Ratio (12.00-20.00); Bilirubin, Conjugated 0.24 mg/dL (0.20-0.40); Bilirubin,Unconjugated 0.96 mg/dL (0.20-1.00); Blood Urea Nitrogen 16.4 mg/dL (9.0-27.0); Calcium 10.1 mg/dL (8.7-10.3); Carbon Dioxide 26.1 mmol/L (21.6-31.8); Chloride 102 mmol/L (96-109); Chol/HDL Ratio 4.56 Ratio; Globulin 2.1 d/dL (1.6-3.3); Glucose 137 mg/dL (70-110); LDL Cholesterol,Calculated 45.8 mg/dL (0.0-131.0); Phosphorus 4.2 mg/dL (2.4-5.1); Potassium 5.2 mmol/L (3.5-5.5); Sodium 140 mmol/L (135-145); Total Bilirubin 1.2 mg/dL (0.3-1.2); Total Protein 6.8 d/dL (6.2-8.2)
[2023-05-24 17:57] LABS: Microalbumin Creatinine Ratio <18 mg/g Cr (0-30); Urine Creatinine 66.7 mg/dL (28.0-217.0)
== END | disposition home or self-care (01) ==
LOC: LABWHC1 11:51
PROVIDERS: ATTEND Nurse Practitioner Adult Health
DX: E11.65 Type 2 diabetes mellitus with hyperglycemia (principal); E78.00 Pure hypercholesterolemia, unspecified; I10 Essential (primary) hypertension
CPT/HCPCS: 36415; 80053; 80061; 80069; 82043; 82248; 82570; 83036

== ENCOUNTER → 2023-11-16 | Outpatient (CLI) | payer MEDICARE, BC ==
[2023-11-16 15:19] LABS: ALT 21 U/L (8-44); AST 17 U/L (13-35); Albumin 4.6 g/dL (3.8-4.9); Albumin/Globulin Ratio 1.84 Ratio (1.60-3.17); Alkaline Phosphatase 136 U/L (41-126); BUN/Creat Ratio 21.83 Ratio (12.00-20.00); Blood Urea Nitrogen 13.1 mg/dL (9.0-27.0); Calcium 10.2 mg/dL (8.7-10.3); Carbon Dioxide 22.8 mmol/L (21.6-31.8); Chloride 102 mmol/L (96-109); Chol/HDL Ratio 3.98 Ratio; Globulin 2.5 g/dL (1.6-3.3); Glucose 154 mg/dL (70-110); LDL Cholesterol,Calculated 52.7 mg/dL (0.0-131.0); Potassium 4.1 mmol/L (3.5-5.5); Sodium 140 mmol/L (135-145); Total Bilirubin 1.1 mg/dL (0.3-1.2); Total Protein 7.1 g/dL (6.2-8.2)
[2023-11-16 20:28] LABS: Urine Creatinine 79.5 mg/dL (28.0-217.0)
== END | disposition home or self-care (01) ==
LOC: LABWHC1 09:49
PROVIDERS: ATTEND Internal Medicine Interventional Cardiology
DX: Z00.00 Encounter for general adult medical examination without abnormal findings (principal); E78.2 Mixed hyperlipidemia
CPT/HCPCS: 36415; 80053; 80061; 82043; 82570; 83036

== ENCOUNTER → 2024-05-20 | Outpatient (CLI) | payer MEDICARE, BC ==
[2024-05-20 17:30] LABS: ALT 37 U/L (8-44); AST 33 U/L (13-35); Albumin 4.3 g/dL (3.8-4.9); Albumin/Globulin Ratio 1.95 Ratio (1.60-3.17); Alkaline Phosphatase 148 U/L (41-126); Bilirubin, Conjugated 0.21 mg/dL (0.20-0.40); Bilirubin,Unconjugated 0.69 mg/dL (0.20-1.00); Blood Urea Nitrogen 9.8 mg/dL (9.0-27.0); Calcium 9.3 mg/dL (8.7-10.3); Chloride 103 mmol/L (96-109); Chol/HDL Ratio 4.34 Ratio; Globulin 2.2 g/dL (1.6-3.3); Glucose 195 mg/dL (70-110); LDL Cholesterol,Calculated 32.3 mg/dL (0.0-131.0); Phosphorus 3.5 mg/dL (2.4-5.1); Potassium 4.6 mmol/L (3.5-5.5); Sodium 139 mmol/L (135-145); Total Bilirubin 0.9 mg/dL (0.3-1.2); Total Protein 6.5 g/dL (6.2-8.2)
== END | disposition home or self-care (01) ==
LOC: LABWHC1 09:45
PROVIDERS: ATTEND Nurse Practitioner Family
DX: E11.65 Type 2 diabetes mellitus with hyperglycemia (principal); E78.2 Mixed hyperlipidemia; R74.8 Abnormal levels of other serum enzymes
CPT/HCPCS: 36415; 80061; 80069; 80076; 83036

== ENCOUNTER → 2024-11-22 | Outpatient (CLI) | payer MEDICARE, BC ==
[2024-11-22 15:04] LABS: ALT 28 U/L (8-44); AST 21 U/L (13-35); Albumin 4.3 g/dL (3.8-4.9); Albumin/Globulin Ratio 1.95 Ratio (1.60-3.17); Alkaline Phosphatase 152 U/L (41-126); Blood Urea Nitrogen 10.8 mg/dL (9.0-27.0); Calcium 9.9 mg/dL (8.7-10.3); Carbon Dioxide 24.9 mmol/L (21.6-31.8); Chloride 102 mmol/L (96-109); Chol/HDL Ratio 4.51 Ratio; Globulin 2.2 g/dL (1.6-3.3); Glucose 185 mg/dL (70-110); Potassium 4.5 mmol/L (3.5-5.5); Sodium 140 mmol/L (135-145); Total Bilirubin 1.2 mg/dL (0.3-1.2); Total Protein 6.5 g/dL (6.2-8.2)
[2024-11-22 21:44] LABS: Urine Creatinine 85.6 mg/dL (28.0-217.0)
== END | disposition home or self-care (01) ==
LOC: LABWHC1 09:16
PROVIDERS: ATTEND Nurse Practitioner Adult Health
DX: Z00.00 Encounter for general adult medical examination without abnormal findings (principal); I10 Essential (primary) hypertension; E78.2 Mixed hyperlipidemia; E78.00 Pure hypercholesterolemia, unspecified; E11.65 Type 2 diabetes mellitus with hyperglycemia; E83.42 Hypomagnesemia; E78.1 Pure hyperglyceridemia; R74.8 Abnormal levels of other serum enzymes
CPT/HCPCS: 36415; 80053; 80061; 82043; 82570; 83036; 83721; 83735